=== PATIENT | male | born 1985 | race Caucasian/White ===

== ENCOUNTER 2017-06-25 13:14 | Emergency (ER) | payer OTHER ==
[2017-06-25 13:46] VITALS: BP 127/84; PULSE 86; RESP 18
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
--- NOTE | 2017-06-25 14:20 | XR ---
EXAMINATION TYPE: XR lumbar spine 2 or 3V DATE OF EXAM: 06/25/2017 CLINICAL HISTORY: Fall and back pain TECHNIQUE: Frontal and lateral images of the lumbar spine are obtained. COMPARISON: None FINDINGS: There are 5 lumbar type vertebral bodies identified. There is a rotatory mild levoscolioti c curvature of the lumbar spine. 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 The lumbar spine shows satisfactory alignment without evidence of acute fracture o r dislocation. Vertebral body heights and disk space heights are within normal limits. The overlying soft tissue appears unremarkable. IMPRESSION: No acute fracture or dislocation is seen in the lumbar spine.
--- NOTE | 2017-06-25 14:23 | XR ---
EXAMINATION TYPE: XR elbow complete LT DATE OF EXAM: 06/25/2017 CLINICAL HISTORY: Left elbow pain after fall TECHNIQUE: Frontal, lateral and oblique images of the left elbow are obtained. COMPARISON: None FINDINGS: There is a minimally impacted noncomminuted nonintra-articular fracture of the radial head at the metaphysis. Minimal adjacent periosteal reaction is seen. No joint effusion is noted. No addit ional fracture is identified. IMPRESSION: Transversely oriented, noncomminuted, nonintra-articular acute to subacute impaction frac ture of the radial head as there is some periosteal reaction and no joint effusion seen.
== END 2017-06-25 14:47 | disposition home or self-care (01) ==
LOC: EC 13:14
DX: S52.122A Displaced fracture of head of left radius, initial encounter for closed fracture (principal); M54.5 Low back pain; G89.29 Other chronic pain; Z88.0 Allergy status to penicillin; Z79.891 Long term (current) use of opiate analgesic; Z87.891 Personal history of nicotine dependence; W18.31XA Fall on same level due to stepping on an object, initial encounter; Y92.009 Unspecified place in unspecified non-institutional (private) residence as the place of occurrence of the external cause
CPT/HCPCS: 29105; 72100; 99283

== ENCOUNTER 2018-12-14 15:49 | Emergency (ER) | payer OTHER ==
[2018-12-14 15:53] VITALS: BP 117/72; PULSE 90; RESP 18; TEMP 98.2
--- NOTE | 2018-12-14 17:00 | ED ---
Psych HPI - General Chief Complaint: Psychiatric Symptoms Stated Complaint: Rash Time Seen by Provider: 12/14/18 16:05 Source: patient, RN notes reviewed, old records reviewed Mode of arrival: ambulatory - History of Present Illness Initial Comments: Patient is a 33-year-old male, presents emergency department today for evaluation for chief complaint of a rash. He reports his been having this rash has been pruritic over his legs for the past few weeks. He reports it seems to become a diffuse rash over the past week involving both legs, and hands. Patient reports the rash has been linear pattern. Patient denies any new exposures. Patient states that he is using calamine lotion and Benadryl to help with the itching. He also states he wants to talk to somebody about acute anxiety. States he prefers to have referral to [facility] or psychiatrist. He states that he has had history of chronic anxiety and depression feels that he would benefit from seeing a psychiatrist. He has not on any psychiatric medications as of this time. - Related Data Home Medications Medication Instructions Recorded Confirmed HYDROcodone/APAP 7.5-325MG [[place] 1 tab PO TID 06/25/17 12/14/18 7.5-325] Naproxen Sodium [Aleve] 440 mg PO DAILY PRN 12/14/18 12/14/18 Previous Rx's Medication Instructions Recorded Permethrin 5% Cream [Elimite] 1 applic TOPICAL ONCE #60 cream..g. 12/14/18 methylPREDNISolone Dose Pack 4 mg PO DIRECTED #21 package 12/14/18 [Medrol Dose Pack] Allergies Allergy/AdvReac Type Severity Reaction Status Date / Time bee venom protein (honey bee) Allergy Anaphylaxis Verified 12/14/18 16:30 Penicillins AdvReac Rash/Hives Verified 12/14/18 16:30 Review of Systems ROS Statement: Those systems with pertinent positive or pertinent negative responses have been documented in the HPI. ROS Other: All systems not noted in ROS Statement are negative. Past Medical History Past Medical History: No Reported History Additional Past Medical History / Comment(s): Chronic back pain History of Any Multi-Drug Resistant Organisms: None Reported Past Surgical History: Orthopedic Surgery Additional Past Surgical History / Comment(s): WRIST AND RIGHT SHOULDER Past Psychological History: Anxiety, Depression Smoking Status: Former smoker Past Alcohol Use History: None Reported Past Drug Use History: None Reported General Exam - General Exam Comments Initial Comments: 33-year-old male. Alert and oriented. Limitations: no limitations General appearance: alert, in no apparent distress Head exam: Present: atraumatic, normocephalic, normal inspection Eye exam: Present: normal appearance, PERRL, EOMI. Absent: scleral icterus, conjunctival injection, periorbital swelling ENT exam: Present: normal exam, mucous membranes moist Neck exam: Present: normal inspection. Absent: tenderness, meningismus, lymphadenopathy Respiratory exam: Present: normal lung sounds bilaterally. Absent: respiratory distress, wheezes, rales, rhonchi, stridor Cardiovascular Exam: Present: regular rate, normal rhythm, normal heart sounds. Absent: systolic murmur, diastolic murmur, rubs, gallop, clicks GI/Abdominal exam: Present: soft, normal bowel sounds. Absent: distended, tenderness, guarding, rebound, rigid Extremities exam: Present: normal inspection, full ROM, normal capillary refill. Absent: tenderness, pedal edema, joint swelling, calf tenderness Back exam: Present: normal inspection Neurological exam: Present: alert, oriented X3, CN II-XII intact Psychiatric exam: Present: normal affect, normal mood Skin exam: Present: warm, rash (She has a linear papular rash over her knees legs and back. Concern for possible scabies.) Course Vital Signs 12/14/18 15:51 Temperature 98.2 F Pulse Rate 90 Respiratory 18 Rate Blood Pressure 117/72 O2 Sat by Pulse 97 Oximetry Medical Decision Making - Medical Decision Making 33-year-old male presents to return today for acute rash. Rashes papular linear rash, concern for scabies. Discussed treating with permethrin. Discussed also the Patient short course of prednisone to help with itching. Patient also complains of anxiety and wants to see EPS nurse. I discussed with the EPS nurse who evaluated Patient. Patient case is transferred to Dr. Lynne. Disposition Clinical Impression: Pruritic rash, Anxiety Disposition: HOME SELF-CARE Condition: Good Instructions (If sedation given, give patient instructions): Scabies (ED) Additional Instructions: Patient should wash all clothing and bedding in hot water. Patient should take a shower tonight, apply the permethrin cream, and sleep and cleaned sheets. Take a shower in the morning and wash the permethrin cream off. Repeat treatment in one week. Follow-up with outpatient referrals for counseling services. Prescriptions: Permethrin 5% Cream [Elimite] 1 applic TOPICAL ONCE #60 cream..g. methylPREDNISolone Dose Pack [Medrol Dose Pack] 4 mg PO DIRECTED #21 package Is patient prescribed a controlled substance at d/c from ED?: No Referrals: Stalin Hayes Jr, [Primary Care Provider] - 1-2 days Time of Disposition: 16:53
== END 2018-12-14 18:45 | disposition home or self-care (01) ==
LOC: EC 15:49
DX: F41.9 Anxiety disorder, unspecified (principal); L29.9 Pruritus, unspecified; G89.29 Other chronic pain; M54.9 Dorsalgia, unspecified; Z79.891 Long term (current) use of opiate analgesic; Z88.0 Allergy status to penicillin; Z91.030 Bee allergy status; Z87.891 Personal history of nicotine dependence
CPT/HCPCS: 82075; 99284

== ENCOUNTER 2019-05-03 18:28 | Emergency (ER) | payer OTHER ==
[2019-05-03 18:42] VITALS: BP 156/98; TEMP 98
[2019-05-03] MEDS ORDERED: IPRATROPIUM-ALBUTEROL 3 ML NEB INHALATION STA (19:04)
[2019-05-03] MEDS ORDERED: methylPREDNISolone SOD SUCCI 125 MG/2 ML VIAL IV STA (19:04)
[2019-05-03 19:23] VITALS: RESP 20
[2019-05-03 19:40] VITALS: PULSE 88
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
[2019-05-03 19:59] LABS: ALT 172 U/L (4-49); AST 185 U/L (17-59); African American GFR (CKD) >90 (>60 ml/min/1.73 sqM); Albumin 4.5 g/dL (3.5-5.0); Alkaline Phosphatase 232 U/L (38-126); Anion Gap 10 mmol/L; Blood Urea Nitrogen 17 mg/dL (9-20); Calcium 8.7 mg/dL (8.4-10.2); Carbon Dioxide 24 mmol/L (22-30); Chloride 102 mmol/L (98-107); Glucose 102 mg/dL (74-99); Non-African American GFR(CKD) >90 (>60 ml/min/1.73 sqM); Potassium 3.9 mmol/L (3.5-5.1); Sodium 136 mmol/L (137-145); Total Bilirubin 0.3 mg/dL (0.2-1.3); Total Protein 7.3 g/dL (6.3-8.2)
--- NOTE | 2019-05-03 20:00 | XR ---
EXAMINATION TYPE: XR chest 2V DATE OF EXAM: 05/03/2019 COMPARISON: NONE HISTORY: Worsening cough, fever, and shortness of breath. Recent domestic travel. TECHNIQUE: Frontal and lateral views of the chest are obtained. FINDINGS: There is no focal air space opacity, pleural effusion, or pneumothorax seen. The cardiac silhouette size is within normal limits. Cervical fixation of a right clavicular fracture. IMPRESSION: No acute cardiopulmonary process.
[2019-05-03 20:05] LABS: Basophils % (A) 0 %; Eosinophils # (A) 0.1 k/uL (0-0.7); Eosinophils % (A) 2 %; HCT 42.3 % (39.0-53.0); HGB 14.6 gm/dL (13.0-17.5); Lymphocytes # (A) 0.7 k/uL (1.0-4.8); Lymphocytes % (A) 19 %; MCH 28.7 pg (25.0-35.0); MCHC 34.5 g/dL (31.0-37.0); MCV 83.1 fL (80.0-100.0); Mean Platelet Volume 8.6; Monocytes # (A) 0.3 k/uL (0-1.0); Monocytes % (A) 9 %; Neutrophils # (A) 2.4 k/uL (1.3-7.7); Neutrophils % (A) 66 %; Platelet Count 171 k/uL (150-450); RBC 5.09 m/uL (4.30-5.90); RDW 12.5 % (11.5-15.5); WBC 3.5 k/uL (3.8-10.6)
[2019-05-03] MEDS ORDERED: OSELTAMIVIR 75 MG CAP PO STA (20:18)
== END 2019-05-03 21:00 | disposition home or self-care (01) ==
LOC: EC 18:28
DX: J10.1 Influenza due to other identified influenza virus with other respiratory manifestations (principal); R74.8 Abnormal levels of other serum enzymes; G89.29 Other chronic pain; Z87.891 Personal history of nicotine dependence; Z88.0 Allergy status to penicillin; Z91.030 Bee allergy status; Z79.891 Long term (current) use of opiate analgesic; Z87.09 Personal history of other diseases of the respiratory system
CPT/HCPCS: 99284; 96374; 36415; 94640; 93005; 80053; 83605; 85025; 87502; 71046; J2930

== ENCOUNTER → 2022-09-01 | Outpatient (CLI) | payer OTHER ==
--- NOTE | 2022-09-01 08:54 | XR ---
EXAMINATION TYPE: XR thoracic spine 3 views complete DATE OF EXAM: 09/01/2022 Comparison: 08/28/2014 Clinical History: 37-year-old male THORACIC DDD Findings: Plate and screw fixation right clavicular shaft. There is dextroconvex curvature at the thoracolumbar junction. 12 rib-bearing thoracic vertebral bodies. All pedicles are visualized. There is moderate d isc/endplate degenerative change mid to lower thoracic spine with slight accentuated mid to lower tho racic kyphosis. Vertebral body heights are preserved. Impression: 1. Moderate degenerative disc disease and endplate spondylosis mid to lower thoracic spine with sligh tly accentuated mid to lower thoracic kyphosis. No vertebral compression collapse or malalignment. 2. Slight dextroconvex curvature at the thoracolumbar junction.
== END | disposition home or self-care (01) ==
LOC: RADXRMAIN 07:50
PROVIDERS: ATTEND Physical Medicine & Rehabilitation
DX: M51.34 Other intervertebral disc degeneration, thoracic region (principal); M47.814 Spondylosis without myelopathy or radiculopathy, thoracic region; M40.204 Unspecified kyphosis, thoracic region
CPT/HCPCS: 72072

== ENCOUNTER → 2022-11-01 | Outpatient (CLI) | payer OTHER ==
--- NOTE | 2022-11-01 16:08 | XR ---
EXAMINATION TYPE: XR lumbar spine 2 or 3V DATE OF EXAM: 11/01/2022 2:39 PM CLINICAL INDICATION:Male, 37 years old with history of M54.50; [facility] COMPARISON: 06/25/2017 TECHNIQUE: Frontal, lateral and coned in L5-S1 lateral views of the spine. FINDINGS: No evidence of any acute osseous pathology. No evidence of loss of vertebral body height i s seen. There is normal alignment of the lumbar vertebral bodies. Mild scattered disc space narrowing . Multilevel marginal osteophyte formation throughout the visualized spine. There is facet joint arth ropathy throughout the spine. Scattered at least mild neural foraminal stenosis worse at L5-S1. IMPRESSION: 1. No acute fracture. 2. Mild multilevel disc degeneration.
--- NOTE | 2022-11-01 16:32 | XR ---
EXAMINATION TYPE: XR thoracic spine complete DATE OF EXAM: 11/01/2022 2:39 PM CLINICAL INDICATION:Male, 37 years old with history of M54.50; COMPARISON: 09/01/2022 TECHNIQUE: 2 views of the thoracic spine in Frontal and lateral projections. FINDINGS: No evidence of acute fracture. There is scattered multilevel disk space narrowing without loss of ve rtebral body height. There is normal alignment of the thoracic vertebral bodies. Scattered osteophyte formation along the anterior and lateral aspects of the vertebral bodies. Neural foramen are patent given limitations of this exam. Spinal canal appears patent. IMPRESSION: No acute osseous pathology. Moderate multilevel disc degeneration changes throughout the spine. Not significantly changed from pr ior.
== END | disposition home or self-care (01) ==
LOC: RADXRMAIN 14:00
PROVIDERS: ATTEND Registered Nurse
DX: M51.36 Other intervertebral disc degeneration, lumbar region (principal); M51.34 Other intervertebral disc degeneration, thoracic region
CPT/HCPCS: 72072; 72100

== ENCOUNTER 2024-08-15 06:35 | Emergency (ER) | payer OTHER ==
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
[2024-08-15 07:56] LABS: Basophils # (A) 0.07 10*3/uL (0.00-0.10); Basophils % (A) 0.7 %; Eosinophils # (A) 0.09 10*3/uL (0.04-0.35); Eosinophils % (A) 0.9 %; HCT 35.1 % (39.6-50.0); HGB 11.7 g/dL (13.0-17.0); Lymphocytes # (A) 1.67 10*3/uL (0.90-5.00); Lymphocytes % (A) 17.3 %; MCH 24.3 pg (27.0-32.0); MCHC 33.3 g/dL (32.0-37.0); Mean Platelet Volume 10.9 fL (9.5-12.2); Monocytes # (A) 1.12 10*3/uL (0.20-1.00); Monocytes % (A) 11.6 %; Neutrophils % (A) 69.2 %; Platelet Count 357 10*3/uL (140-440); RBC 4.81 10*6/uL (4.40-5.60); RDW 15.9 % (11.5-14.5); WBC 9.68 10*3/uL (4.50-10.00)
[2024-08-15 08:01] LABS: Appearance,Urine Clear (Clear); Bilirubin,Urine Negative (Negative); Blood,Urine Negative (Negative); Color,Urine Colorless; Glucose,Urine (UA) Negative (Negative); Ketones,Urine Negative (Negative); Leukocyte Esterase,Urine Negative (Negative); Nitrite,Urine Negative (Negative); PH, Urine 5.5 (5.0-8.0); Protein,Urine Negative (Negative); Specific Gravity,Urine 1.012 (1.001-1.035); Urobilinogen,Urine <2.0 mg/dL (<2.0)
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
[2024-08-15 08:12] LABS: ALT 22 U/L (4-49); AST 38 U/L (17-59); African American GFR (CKD) >90 (>60 ml/min/1.73 sqM); Albumin 5.1 g/dL (3.5-5.0); Alcohol <10 mg/dL; Alkaline Phosphatase 74 U/L (38-126); Anion Gap 14 mmol/L; Blood Urea Nitrogen 16 mg/dL (9-20); Calcium 9.9 mg/dL (8.4-10.2); Carbon Dioxide 19 mmol/L (22-30); Chloride 108 mmol/L (98-107); Glucose 106 mg/dL (74-99); Non-African American GFR(CKD) >90 (>60 ml/min/1.73 sqM); Potassium 3.8 mmol/L (3.5-5.1); Sodium 141 mmol/L (137-145); Total Bilirubin 0.6 mg/dL (0.2-1.3); Total Protein 7.2 g/dL (6.3-8.2)
[2024-08-15 08:18] LABS: Prothrombin Time 11.3 sec (10.0-12.5)
[2024-08-15] MEDS: SODIUM CHLORIDE 0.9% 1,000 ML IV ONE (08:59)
[2024-08-15 09:07] LABS: Amphetamine Screen,Urine Not Detected (NotDetected); Barbiturate Screen,Urine Not Detected (NotDetected); Benzodiazepines Screen,Urine Detected (NotDetected); Cocaine Screen,Urine Not Detected (NotDetected); Methadone Screen, Urine Not Detected (NotDetected); Opiate Screen,Urine Detected (NotDetected); Oxycodone Screen, Urine Not Detected (NotDetected); Phencyclidine Screen,Urine Not Detected (NotDetected); Tricyclic Antidepressant,Urine Not Detected (NotDetected); Urn Cannabinoid Scrn Not Detected (NotDetected)
[2024-08-15 10:19] VITALS: BP 113/81
[2024-08-15] MEDS: TOPICAL SKIN ADHESIVE 1 EACH AMP TOPICAL ONE (11:18)
[2024-08-15 11:37] VITALS: PULSE 100; RESP 17; TEMP 98
== END 2024-08-15 11:40 | disposition home or self-care (01) ==
LOC: EC 06:35
DX: S06.0X0A Concussion without loss of consciousness, initial encounter (principal); R40.2142 Coma scale, eyes open, spontaneous, at arrival to emergency department; R40.2362 Coma scale, best motor response, obeys commands, at arrival to emergency department; R40.2242 Coma scale, best verbal response, confused conversation, at arrival to emergency department; F17.200 Nicotine dependence, unspecified, uncomplicated; Z88.0 Allergy status to penicillin; Z91.030 Bee allergy status; V29.408A Other motorcycle driver injured in collision with unspecified motor vehicles in traffic accident, initial encounter; Y92.410 Unspecified street and highway as the place of occurrence of the external cause
CPT/HCPCS: 36415; 70450; 72125; 80053; 80306; 80320; 81003; 83605; 84484; 85025; 85610; 85730; 86850; 86900; 86901; 93005; 96360; 96361; 99284